=== PATIENT | male | born 1955 | race Caucasian/White ===

== ENCOUNTER → 2023-12-26 15:37 | Outpatient (REF) | payer MEDICARE, OTHER, SELFPAY | LOC: RCS 15:37 | PROVIDERS: ATTENDING PHYSICIAN Physician Assistant Medical; FAMILY PHYSICIAN Internal Medicine | DX: I10 Essential (primary) hypertension (principal); I25.10 Atherosclerotic heart disease of native coronary artery without angina pectoris | CPT/HCPCS: 93306 ==

== ENCOUNTER → 2024-03-07 07:54 | Outpatient (REF) | payer MEDICARE, OTHER, SELFPAY | LOC: DHCBC/DCA 07:54 | PROVIDERS: ATTENDING PHYSICIAN Physician Assistant Medical; FAMILY PHYSICIAN Internal Medicine | DX: I25.10 Atherosclerotic heart disease of native coronary artery without angina pectoris (principal); R07.9 Chest pain, unspecified; R06.09 Other forms of dyspnea | CPT/HCPCS: 78452; 93017; A9500 ==

== ENCOUNTER 2024-03-11 08:20 | Day surgery (SDC) | payer MEDICARE, OTHER, SELFPAY ==
[2024-03-11] VITALS (21 sets, daily range): BP systolic 152–210; BP diastolic 87–113; BMI 37.3
[2024-03-11 09:01] LABS: Hematocrit 40.8 % (39.0-52.0); Hemoglobin 14.5 g/dL (13.0-18.0); Mean Corp Hgb Conc. 35.5 g/dL (33.0-37.0); Mean Corpuscular Hgb 29.8 pg (27.0-31.0); Mean Platelet Volume 10.5 fL (7.4-10.4); Platelet Count 184 10^3/uL (130-400); Red Blood Cell Count 4.86 10^6/uL (4.70-6.10); Red Cell Dist. Width 13.7 % (11.5-14.5); White Blood Cell Count 5.4 10^3/uL (4.8-10.8)
[2024-03-11] MEDS: LOW STRENGTH ASPIRIN 81 MG PO (09:19)
[2024-03-11 09:20] LABS: Blood Urea Nitrogen 22 mg/dl (9-20); Carbon Dioxide 26 mmol/L (22-30); Chloride 107 mmol/L (98-107); Estimated Creatinine Clearance 58 ml/min; Glucose 107 mg/dl (70-99); Potassium 3.9 mmol/L (3.5-5.1); Sodium 143 mmol/L (135-145); eGFR 50.71
[2024-03-11] MEDS: NSS 334 ML IV (09:20)
[2024-03-11 11:41] LABS: ACT-LR - POC 339 Seconds (116-155)
[2024-03-11 12:10] LABS: ACT-LR - POC > 397 Seconds (116-155)
[2024-03-11 12:15] LABS: ACT-LR - POC 321 Seconds (116-155)
[2024-03-11] MEDS: NORVASC 10 MG PO (13:29)
[2024-03-11] MEDS: ZESTRIL 40 MG PO (13:29)
[2024-03-11] MEDS: TRANDATE 100 MG PO ×2 (13:29→19:52)
--- NOTE | 2024-03-11 13:47 | ITS.CL.CATH ---
Coldfusion - Catheterization
Cardiac Catheterization
Procedure Report:
LEFT HEART CATH AND CORONARY INTERVENTION
Date of Procedure: March 11, 2024
Referring: Dr. Robert Pham
PROCEDURES:
1. Left heart catheterization with coronary and single-plane left ventriculography
2. Successful stenting of the proximal through mid RCA with overlapping 3.5 x 23 mm and 3.5 x 38 mm Xience stents that were implanted at nominal pressures then postdilated with a 4.0 mm noncompliant balloon
INDICATION: This is a 68-year-old gentleman with a prior history of coronary artery disease and stenting of the LAD with a 3.0 x 23 mm expedition stent back in August 2012. He has done well since this time but within the past several weeks
experienced new onset chest discomfort. His recent stress test was notable for inferior ischemia for which she is now referred for coronary angiography.
ACCESS: Right radial artery, 6 sheath
HEMODYNAMICS (mmHg):
AO (s/d, m) : 168/98
LV (s/d) : 179/19
LVEDP : 29
CORONARY FINDINGS
Dominance: Right
LEFT MAIN: Normal
LEFT ANTERIOR DESCENDING: The LAD arises normally from the left main. There is a stent in the proximal-mid LAD spanning the origin of a moderate caliber diagonal branch. The LAD stent is widely patent and the remainder of the LAD has only minor
irregularities over its course. The first diagonal supplies a moderate vascular territory.
CIRCUMFLEX: The circumflex is a moderate to large caliber nondominant vessel giving rise to 2 obtuse marginal branches which are widely patent
RIGHT CORONARY: The right coronary artery is a dominant vessel with a 60% proximal stenosis, tandem 40% and 95% mid stenosis. The mid to distal RCA has luminal irregularities but no high-grade focal stenosis. The PDA is widely patent as is the
posterolateral branch.
VENTRICULOGRAPHY: Left ventriculography is performed in PORTER projection. The digital single-plane left ventricular ejection fraction is estimated at 60%
ANGIOPLASTY PROCEDURE DETAIL: Upon review of the diagnostic catheterization films the decision was made to proceed with percutaneous revascularization of the high-grade mid RCA stenosis and proximal RCA stenosis. A 180 mg loading dose of ticagrelor
was administered on background therapy of aspirin. Intravenous heparin was given and the ACT was monitored throughout the procedure.
The origin of the RCA was cannulated with a 6 Fijian AR1 guiding catheter and a long BMW guidewire was advanced into the distal RCA. Balloon predilation was performed using a 2.25 x 15 mm Trek balloon and was followed by placement of a 3.5 x 23 mm
Xience stent that was implanted at nominal pressures. After some consideration the decision was made to treat the entire atherosclerotic segment from the proximal through mid RCA with placement of a 3.5 x 38 mm Xience stent that was implanted at
nominal pressures then postdilated with a 4.0 mm noncompliant balloon at nominal pressures distally and 16 ant from the proximal to midportion of the stent including the area of stent overlap.
RADIATION SUMMARY: Fluoro Time (min): 15.0, Dose (mGy): 964, DAP (Gy.cm2) : 61.3
CONCLUSIONS
1. Successful stenting of the proximal through mid RCA with overlapping 3.5 x 38 mm and 3.5 x 23 mm Xience stents which were postdilated to high pressures with a 4.0 mm noncompliant balloon
2. Patent proximal-mid LAD stent
3. Preserved LV systolic function
RECOMMENDATIONS
1. Uninterrupted dual antiplatelet therapy for 6 to 12 months given unstable nature of symptoms beginning within the past 2 months
2. Needs aggressive blood pressure control
3. The patient did not note 4-5/10 substernal chest tightness postprocedure. He will be monitored overnight in the hospital given his renal insufficiency and symptoms post PCI
Copy to: Dr. Robert Pham
--- NOTE | 2024-03-11 15:04 | PTCARENOTE ---
received patient from clam bed laborer with right radial R band intact, distal pulse palpable. 3cc of air tqaken out of R band without difficulties. patient at present has no chest pain. BP elevated 166/108, MD aware and morning medications were given to
patient over in clam bed laborer. monitor shows NSR, oriented to room and surroundings. family at bedside.
--- NOTE | 2024-03-11 15:16 | CM ---
spoke to pt in room, he is prev indep, lives with his in a 2 story home with 3 steps to enter. he denies any dme's or dc planning needs. plan is for dc to home when medically stable.
[2024-03-11] MEDS: PROTONIX 40 MG PO (19:52)
--- NOTE | 2024-03-11 20:17 | PTCARENOTE ---
Pt seated in chair at change of shift- Family at bedside. no reports of cp at this time. NSR in the 60s on the monitor. POC discussed pt verbalized understanding R radial site CDI
[2024-03-12 05:07] VITALS: BP 148/90
[2024-03-12 05:48] LABS: Hematocrit 41.1 % (39.0-52.0); Hemoglobin 14.7 g/dL (13.0-18.0); Mean Corp Hgb Conc. 35.8 g/dL (33.0-37.0); Mean Corpuscular Hgb 30.5 pg (27.0-31.0); Mean Corpuscular Volume 85.3 fL (80.0-94.0); Mean Platelet Volume 10.5 fL (7.4-10.4); Platelet Count 167 10^3/uL (130-400); Red Blood Cell Count 4.82 10^6/uL (4.70-6.10); Red Cell Dist. Width 13.4 % (11.5-14.5); White Blood Cell Count 6.7 10^3/uL (4.8-10.8)
[2024-03-12 05:59] LABS: Blood Urea Nitrogen 19 mg/dl (9-20); Calcium 8.8 mg/dl (8.4-10.2); Carbon Dioxide 22 mmol/L (22-30); Chloride 107 mmol/L (98-107); Estimated Creatinine Clearance 67 ml/min; Glucose 105 mg/dl (70-99); HDL Cholesterol 35 mg/dl; LDL Cholesterol, Calculated 69 mg/dl; Potassium 3.8 mmol/L (3.5-5.1); Sodium 140 mmol/L (135-145); Total Cholesterol 136 mg/dl (50-199); Triglyceride 164 mg/dl (10-149); Very Low Density Lipoprotein 32 mg/dl (0-30); eGFR > 60.00
[2024-03-12 07:00] VITALS: BP 134/75
[2024-03-12 07:32] VITALS: BP 134/75
[2024-03-12] MEDS: LIPITOR 80 MG PO (07:36)
[2024-03-12] MEDS: FLOMAX 0.4 MG PO (07:36)
[2024-03-12] MEDS: PROTONIX 40 MG PO (07:36)
[2024-03-12] MEDS: NORVASC 10 MG PO (07:37)
[2024-03-12] MEDS: LOW STRENGTH ASPIRIN 81 MG PO (07:37)
[2024-03-12] MEDS: ZESTRIL 40 MG PO (07:37)
[2024-03-12] MEDS: TRANDATE 100 MG PO (07:38)
[2024-03-12] MEDS: PLAVIX 600 MG PO (07:42)
--- NOTE | 2024-03-12 08:10 | W.PN.CARDCBS ---
Addendum entered and electronically signed by Robert Pham MD 03/12/24 11:07:
Attending addendum: Patient seen and examined independently by me. He has been feeling well. No chest pain overnight. No complaints this morning.
GEN: AAO x 3.��No acute distress
HEENT:��NC/AT, sclera are anicteric, hearing normal.�
LUNGS: Clear to bases bilaterally.��No wheezing
CV: Regular rate and rhythm.��Normal S1/S2.��No S3, No S4.��Murmur: None
EXT: No CCE. Radial access site is soft. Pulses palpable. No bruit.
NEURO: No focal neurologic deficits�
Recommendation:
-Stable for discharge. I did stressed the need to remain compliant with dual antiplatelet therapy including aspirin and clopidogrel
-Atorvastatin was increased from 40-80 approximately 3 weeks ago. LDL cholesterol is still a little high so we will add Zetia
-Increase labetalol to 200 mg p.o. twice daily
-Monitor home blood pressures and bring a list to the next office visit
-Should repeat fast lipid profile in 3 months
Original Note:
Today's Communication / Plan
-
Post PCI, feels good
DAPT ASA/Plavix
Impression / Plan
-
Primary care physician: José Miguel Milan MD
Primary truck leasing manager: Robert Pham MD
68-year-old gentleman with a prior history of coronary artery disease and stenting of the LAD with a 3.0 x 23 mm expedition stent back in August 2012. He has done well since this time but within the past several weeks experienced new onset chest
discomfort. His recent stress test was notable for inferior ischemia for which she is now referred for coronary angiography.
Impression:
CAD prior PCI LAD 2012
Abnormal NST
post PCI RCA x2 MAURICE 03/11/24
HTN
Hyperlipidemia
[place] intolerant of CPAP
Renal carcinoma post nephrectomy 2014
CKD 3A
GERD
Obesity
03/11/24 LHC:
1. Left heart catheterization with coronary and single-plane left ventriculography
2. Successful stenting of the proximal through mid RCA with overlapping 3.5 x 23 mm and 3.5 x 38 mm Xience stents that were implanted at nominal pressures then postdilated with a 4.0 mm noncompliant balloon
Plan:
post PCI RCA no further cp
rad site stable
tele SR no significant ecotpy
DAPT ASA/Plavix, unable to afford Brilinta
BP remain elevated, will increase labetalol to 200mg bid, continue lisinopril and amlodipine, monitor and keep log at home
LDL 69, continue atorvastatin 80mg which was increased from 40mg at last OV 02/18, will also add zetia, f/u LFT's and lipids in 6-8 weeks
He states he is only on famotidine for GERD, but omeprazole was on med list, will give Protonix script
Cardiac rehab c/s
f/u Dr. Pham in 1 mo
home today
Progress Note - Belt Fixer
Subjective
Date of Service: March 12, 2024
no cp, sob
Objective
Labs:
03/12/24 05:19
03/12/24 05:19
Labs
Hgb 14.7 g/dL (13.0-18.0) 03/12/24 05:19
Hct 41.1 % (39.0-52.0) 03/12/24 05:19
Plt Count 167 10^3/uL (130-400) 03/12/24 05:19
Sodium 140 mmol/L (135-145) 03/12/24 05:19
Potassium 3.8 mmol/L (3.5-5.1) 03/12/24 05:19
BUN 19 mg/dl (9-20) 03/12/24 05:19
Creatinine 1.3 mg/dL (0.7-1.3) 03/12/24 05:19
Glucose 105 mg/dl (70-99) H 03/12/24 05:19
Vital Signs and I&O:
Vital Signs
Temp Pulse Resp BP Pulse Ox
97.7 F 72 16 134/75 98
03/12/24 07:00 03/12/24 07:38 03/12/24 07:00 03/12/24 07:38 03/12/24 07:00
Vital Signs
Temp Pulse Resp BP Pulse Ox
97.7 F 72 16 134/75 98
03/12/24 07:00 03/12/24 07:38 03/12/24 07:00 03/12/24 07:38 03/12/24 07:00
Intake & Output
03/10/24 03/11/24 03/12/24 03/13/24
06:59 06:59 06:59 06:59
Intake Total 1315 / 1315
Balance 1315 / 1315
Physical Exam
Physical Exam
NAD< AOX3
S1, S2, RRR
CTAB< non labored, no wheeze
SNTND bsx4
R rad site c/d/i no HT
--- NOTE | 2024-03-12 09:37 | W.DS.TRANS ---
DC Summary - Diesel Service Apprentice
-
Discharge Instructions:
Discharge Diagnosis/Procedures Angioplasty and stent x2 to Right Coronary
artery
Diet Low Cholesterol
Driving Restrictions No driving for 24 hours
Other Services Cardiac Rehab
Instructions:
Stand-Alone Forms: DC Inst - Same Day PCI
Changes to Home Medications: No
Discharge Medications:
DC Medications w/original date entered in [facility]
amlodipine 10 mg tablet (Norvasc) 10 mg PO DAILY 03/11/24
aspirin 81 mg tablet 81 mg PO DAILY 03/11/24
atorvastatin 80 mg tablet (Lipitor) 80 mg PO DAILY 03/11/24
lisinopril 40 mg tablet 40 mg PO QPM 03/11/24
tamsulosin 0.4 mg capsule 0.4 mg PO DAILY 03/11/24
clopidogrel 75 mg tablet 75 mg PO DAILY #90 tabs 03/12/24
ezetimibe 10 mg tablet (Zetia) 10 mg PO DAILY #30 tabs 03/12/24
famotidine 40 mg tablet 40 mg PO BID 03/12/24
labetalol 200 mg tablet 200 mg PO BID #60 tabs 03/12/24
pantoprazole 40 mg tablet,delayed release (Protonix) 40 mg PO DAILY #30 tabs 03/12/24
Home Medication Changes
new to plavix, ezetimibe, protonix, increased labetalol dose
Pending Results: Yes
--- NOTE | 2024-03-12 10:55 | PTCARENOTE ---
Rec'd pt at change of shift pt on monitor in NSR with 1st degree HB, VSS, and AAAO*3. Pt denied any pain or discomfort. Rec'd order for discharge order to home. IV and TELE monitor discontinued. Pt given discharge instruction and verbalized
understanding and was able to teach back instructions to RN. Pt left room with all personal belongings, discharge instructions, and educational packets. Pt escorted down to car by staff via wheelchair. Pt left being driven home by spouse.
== END 2024-03-12 10:55 | disposition home or self-care (01) ==
LOC: CATH 08:20
PROVIDERS: Nurse Practitioner; ATTENDING PHYSICIAN Internal Medicine Interventional Cardiology; FAMILY PHYSICIAN Internal Medicine
DX: I25.10 Atherosclerotic heart disease of native coronary artery without angina pectoris (principal); I12.9 Hypertensive chronic kidney disease with stage 1 through stage 4 chronic kidney disease, or unspecified chronic kidney disease; E78.5 Hyperlipidemia, unspecified; E66.9 Obesity, unspecified; G47.33 Obstructive sleep apnea (adult) (pediatric); K21.9 Gastro-esophageal reflux disease without esophagitis; N18.31 Chronic kidney disease, stage 3a; Z79.899 Other long term (current) drug therapy; R07.89 Other chest pain; Z79.02 Long term (current) use of antithrombotics/antiplatelets; Z79.82 Long term (current) use of aspirin; Z95.5 Presence of coronary angioplasty implant and graft
CPT/HCPCS: 80048; 80061; 85027; 85347; 93005; 93458; C1725; C1769; C1874; C1894; C9600; Q9967

== ENCOUNTER → 2025-03-19 09:59 | Outpatient (REF) | payer MEDICARE, OTHER, SELFPAY | LOC: RAD 09:59 | PROVIDERS: ATTENDING PHYSICIAN Nurse Practitioner | DX: I25.10 Atherosclerotic heart disease of native coronary artery without angina pectoris (principal); R42 Dizziness and giddiness; E78.5 Hyperlipidemia, unspecified | CPT/HCPCS: 93880 ==